=== PATIENT | male | born 1960 | race Caucasian/White ===

== ENCOUNTER 2018-08-30 07:19 | Day surgery (SDC) | payer OTHER ==
--- NOTE | 2018-08-25 18:26 | HP ---
CC: Dr. Rosalinda Zamorano * ADMITTING HISTORY AND PHYSICAL: DATE OF ADMISSION: 08/30/18 ADMITTING DIAGNOSIS: Left renal calculi. PLANNED PROCEDURE: Shockwave lithotripsy of left renal calculi. SURGEON: Dr. Stanford. HISTORY OF PRESENT ILLNESS: Miller Banks is a 58-year-old gentleman with a history of recurrent renal calculi. He was recently seen in followup and noted to have a 9 mm and a 7 mm calculus in the lower pole area of the left kidney. He desires lithotripsy of the same and is now being brought in for shockwave lithotripsy of the left renal calculi. PAST MEDICAL HISTORY: Significant for: 1. Recurrent renal calculi. 2. Hypertension. MEDICATIONS ON ADMISSION: 1. Atenolol 25 mg a day. 2. Lisinopril/hydrochlorothiazide 20/25 one tablet b.i.d. 3. Norvasc 10 mg daily. ALLERGIES: No known drug allergies. REVIEW OF SYSTEMS: He is otherwise in excellent health. There is no history of diabetes mellitus or any other major systemic illness. PHYSICAL EXAMINATION GENERAL: Reveals a pleasant, middle-aged gentleman. VITAL SIGNS: Blood pressure is 122/82, pulse 71 per minute and regular, oxygen saturation 97% on room air, temperature 98. LUNGS: Clear bilaterally. CARDIOVASCULAR: Regular rate and rhythm. S1, S2. ABDOMEN: Soft without masses. IMPRESSION: A 58-year-old gentleman with 2 nonobstructing left renal calculi, who desires treatment of the same. PLAN: Shockwave lithotripsy of left renal calculi. [id number] #: [id number] [facility]
[~2018-08-30 07:19] MED LIST: Acetaminophen TAB* 325 MG PO ONE; Buffered Lidocaine 1% SYRIN* 1 ML/SYRINGE INTRADERM ONE; Lactated Ringers 1000 ML Bag* 1,000 ML IV SCH; cefTRIAXone(*) 2 GM in NS 0.9% 100 ML* 100 ML IVPB ONE
[2018-08-30] MEDS ORDERED: Famotidine IV* 10 MG/ML 2 ML (20 mg) ONE (07:29)
[2018-08-30] MEDS ORDERED: Acetaminophen TAB* 325 MG ONE (08:00)
[2018-08-30] MEDS ORDERED: Buffered Lidocaine 1% SYRIN* 1 ML/SYRINGE INTRADERM ONE (08:00)
[2018-08-30] MEDS ORDERED: fentaNYL* 50 MCG/ML 2 ML VIAL (100 MCG VIAL) ONE (08:19)
[2018-08-30] MEDS ORDERED: Midazolam* 1 MG/ML 2 ML VIAL (2 MG) ONE (08:19)
[2018-08-30] MEDS ORDERED: Ondansetron INJ* 2 MG/ML VIAL IV PRN (08:27)
[2018-08-30] MEDS ORDERED: DiMENhydriNATE IV* 50 MG/ML VIAL IV PUSH PRN (08:27)
[2018-08-30] MEDS ORDERED: HYDROcodone/ACETAMIN 5-325 MG* 1 TAB PO PRN ×2 (08:27)
[2018-08-30] MEDS ORDERED: fentaNYL* 50 MCG/ML 2 ML VIAL (100 MCG VIAL) IV PRN (08:27)
[2018-08-30] MEDS ORDERED: Naloxone* 0.4 MG/ML 1 ML VIAL IV PRN (08:27)
[2018-08-30] MEDS ORDERED: PROCHLORPERAZINE INJ 5 MG/ML 2 ML VIAL IV PRN (08:27)
[2018-08-30] MEDS ORDERED: diPHENhydraMINE IV* 50 MG/ML 1 ml VIAL (BENADRYL) IV PRN (08:27)
[2018-08-30] MEDS ORDERED: Lidocaine 2% PF * 5 ML VIAL ONE (10:00)
[2018-08-30] MEDS ORDERED: Ondansetron INJ* 2 MG/ML VIAL ONE (10:01)
[2018-08-30] MEDS ORDERED: Propofol* 10 MG/ML 20 ML BTL ONE (10:01)
[2018-08-30] MEDS ORDERED: Dexamethasone IV* 4 MG/ML 1 ML (4 MG) ONE (10:01)
[2018-08-30] MEDS ORDERED: EPHEDrine (Pressors)* 50 MG/ML VIAL ONE (10:04)
[2018-08-30] MEDS ORDERED: Furosemide IV* 10 MG/ML 2 ML VIAL (20 MG) ONE (10:22)
[2018-08-30 12:00] VITALS: BP 122/83
--- NOTE | 2018-08-30 12:46 | OP ---
OPERATIVE REPORT: DATE OF OPERATION: 08/30/18 DATE OF : 60 SURGEON: Michael Stanford MD ANESTHESIOLOGIST: Dr. Gamboa. ANESTHESIA: General. PRE-OP DIAGNOSIS: Left renal calculi. POST-OP DIAGNOSIS: Left renal calculi. OPERATIVE PROCEDURE: Shockwave lithotripsy of left renal calculi. COMPLICATIONS: None. POSTOPERATIVE CONDITION: Stable. INDICATIONS: Miller Banks is a 58-year-old gentleman with a history of recurrent bilateral renal ca lculi. He was recently evaluated and noted to have 2 left renal calculi measuring about 9 and 7 mm r espectively. DESCRIPTION OF PROCEDURE: After induction of general anesthesia, the patient was placed on the litho tripsy table in a supine position. The 2 calculi in the mid to lower pole area of the left kidney we re localized using fluoroscopy. The larger calculus was more superior in location and this was first identified under fluoroscopy and shockwave lithotripsy was commenced at a rate of 60 shocks per jeremi te. After the initial 300 shocks, there was a pause in lithotripsy for several minutes in an effort to minimize any potential trauma to the kidney. Lithotripsy was then resumed. A total of 2400 shock s were distributed between the 2 stones with the vast majority of the shocks being devoted to the lar paris, more superior calculus. The patient tolerated the procedure satisfactorily and was transferred back to the recovery area in s table condition. [id number]/CPS #: [id number]
== END 2018-08-30 12:50 | disposition home or self-care (01) ==
LOC: OR 07:19
PROVIDERS: ATTEND Urology
DX: N20.0 Calculus of kidney (principal); Z87.442 Personal history of urinary calculi; I10 Essential (primary) hypertension; G47.33 Obstructive sleep apnea (adult) (pediatric)
CPT/HCPCS: 74018; A9270-GY; J0696; J1100; J1940; J2250; J2405; J2704; J3010